=== PATIENT | male | born 1950 | race Caucasian/White ===

== ENCOUNTER 2018-07-31 14:15 | Emergency (ER) | payer MEDICARE, MEDICAID ==
[2018-07-31] MEDS ORDERED: Sodium Chloride 0.9% 1,000 ML IV STA (14:52)
--- NOTE | 2018-07-31 15:16 | ED PDOC ---
Arrival/HPI - General Chief Complaint: Seizure Time Seen by Provider: 07/31/18 14:25 Historian: Family (granddaughter) EM Caveat: Other (HPI is limited by patient's mutism) - History of Present Illness Narrative History of Present Illness (Text): 07/31/18 14:25 Nik Mcelroy is a 68 year old male, with a past medical history of seizures, bipolar disorder, schizophrenia, and depression, who presents to the emergency department by family who complain of seizure prior to arrival. Patient's granddaughter informs that family took him for a walk at his senior care when he suddenly lost consciousness while walking and fell to the floor hitting his head. Per granddaughter, patient convulsed on the floor with eyes open and was non-responsive. Granddaughter also notes patient vomited while convulsing on the floor. She denies any urination or bowel movements during episode. Granddaughter notes patient was groggy after seizure but began to respond to EMS. Patient currently takes Keppra. Granddaughter also notes secondary complaint of right forehead abrasion secondary to hitting head after loosing consciousness. Granddaughter informs that patient is currently at baseline. Further HPI and ROS are limited secondary to patient's mutism. Time/Duration: Prior to Arrival Symptom Course: Resolved Activities at Onset: Light Context: Walking Past Medical History - Provider Review Nursing Documentation Reviewed: Yes - Infectious Disease Hx of Infectious Diseases: None - Cardiac Hx Cardiac Disorders: No - Psychiatric Hx Bipolar Disorder: Yes Hx Schizophrenia: Yes Hx Substance Use: No - Anesthesia Hx Anesthesia: No Family/Social History - Physician Review Nursing Documentation Reviewed: Yes Family/Social History: No Known Family HX Smoking Status: Unknown If Ever Smoked Hx Alcohol Use: No Hx Substance Use: No Allergies/Home Meds Allergies/Adverse Reactions: Allergies No Known Allergies Allergy (Verified 07/31/18 14:25) Home Medications: Home Meds Medication Instructions Recorded Confirmed Unobtainable 07/31/18 07/31/18 Review of Systems - Review of Systems Systems not reviewed;Unavailable: Other (ROS unavailable secondary to patients's mutism) Physical Exam - Physical Exam Narrative Physical Exam (Text): 07/31/18 14:25 Constitutional: No acute distress. Head: Abrasion on right side of forehead. Normocephalic. Eyes: PERRL. ENT: Moist mucous membranes. Neck: No midline tenderness. Supple. Cardiovascular: Regular rate. Chest: No tenderness. Respiratory: Clear to auscultation bilaterally. GI: Soft. Nontender. Nondistended. Back: No CVA tenderness. Musculoskeletal: Full ROM x 4. No tenderness or swelling of extremities. Skin: Abrasion on right side of forehead. No rash. Neurologic: Awake, Alert. Follows commands. no focal deficit. Vital Signs Reviewed: Yes Temperature: Afebrile Blood Pressure: Normal Pulse: Regular Respiratory Rate: Normal Appearance: Positive for: Well-Appearing, Non-Toxic, Comfortable Pain Distress: None Mental Status: Positive for: other (Alert) Medical Decision Making ED Course and Treatment: 07/31/18 14:25 Impression: Patient is a 68 year old male brought by family to the emergency department who complain of seizure prior to arrival. Patient's granddaughter informs patient lost consciousness while walking and fell onto the floor hitting his head. Awake and alert, follows commands on exam. Plan: -- CT Head w/o Contrast -- Labs -- Chest X-Ray -- IV Fluids -- Urine Culture -- Urinalysis -- Reassess and disposition Prior Visits: Notes and results from previous visits were reviewed. Progress Notes: 07/31/18 15:32 CT Head without contrast shows: IMPRESSION: No acute intracranial abnormality. Mild chronic microangiopathic changes and mild age-related global parenchymal volume loss. Suspect acute and/or chronic left posterior ethmoid and sphenoid sinusitis. 07/31/18 15:42 Chest X-Ray shows: IMPRESSION: No active pulmonary disease. 07/31/18 17:[address] Capone, states patient has history of seizure, reviewed labs and CT together, recommends discharge back to [facility] and will see patient there. - RAD Interpretation Radiology Orders: 07/31/18 14:51 HEAD W/O CONTRAST [CT] Stat - Scribe Statement The provider has reviewed the documentation as recorded by the Scribe Modesto Perez All medical record entries made by the Scribe were at my direction and p ersonally dictated by me. I have reviewed the chart and agree that the record accurately reflects my personal performance of the history, physical exam, medical decision making, and the department course for this patient. I have also personally directed, reviewed, and agree with the discharge instructions and disposition. Disposition/Present on Arrival - Present on Arrival Any Indicators Present on Arrival: No History of DVT/PE: No History of Uncontrolled Diabetes: No Urinary Catheter: No History of Decub. Ulcer: No History Surgical Site Infection Following: None - Disposition Have Diagnosis and Disposition been Completed?: Yes Diagnosis: Seizure Disposition: HOME/ ROUTINE Disposition Time: 17:54 Patient Plan: Discharge Condition: FAIR Discharge Instructions (ExitCare): Seizures Referrals: Paula Capone MD [Family Provider] - Follow up with primary Forms: [employer] (Kiswahili)
[2018-07-31 15:21] LABS: BASO # 0.06 K/mm3 (0.0-2.0); BASO % 0.5 % (0.0-3.0); EOS # 0.3 (0.0-0.7); EOS % 2.4 % (1.5-5.0); HEMOGLOBIN 13.5 g/dL (14.0-18.0); LYMPH # 4.3 (1.2-3.4); LYMPH % 33.4 % (22.0-35.0); MEAN CORPUSCULAR HEMOGLOBIN 28.4 pg (25.0-35.0); MEAN CORPUSCULAR HGB CONC 30.9 g/dl (31.0-37.0); MEAN PLATELET VOLUME 11.1 fl (7.0-11.0); MONO # 1.1 (0.1-0.6); MONO % 8.5 % (1.0-6.0); PARTIAL THROMBOPLASTIN TIME 27.5 Seconds (26.9-38.3); RBC 4.75 10^6/uL (3.5-6.1); RED CELL DISTRIBUTION WIDTH 14.4 % (11.5-14.5)
--- NOTE | 2018-07-31 15:36 | CT ---
Date of service: 07/31/2018 PROCEDURE: CT HEAD WITHOUT CONTRAST. HISTORY: head injury COMPARISON: None available. TECHNIQUE: Axial computed tomography images were obtained through the head/brain without intravenous contrast. Radiation dose: Total exam DLP = 898.67 mGy-cm. This CT exam was performed using one or more of the following dose reduction techniques: Automated exposure control, adjustment of the mA and/or kV according to patient size, and/or use of iterative reconstruction technique. FINDINGS: HEMORRHAGE: No intracranial hemorrhage. BRAIN: There are mild chronic microangiopathic changes. There is no mass, mass effect or abnormal extra-axial fluid collection. There is no territorial infarction. The midline sagittal structures are normal. VENTRICLES: There is mild age-related global parenchymal volume loss and proportionate enlargement of the ventricles and cortical sulci. CALVARIUM: There is no calvarial fracture or extracranial soft tissue swelling. PARANASAL SINUSES: There is mild mucosal thickening and aerosolized secretions in the left posterior ethmoid air cells and left sphenoid chamber. The remaining included paranasal sinuses are clear. MASTOID AIR CELLS: Predominantly clear. OTHER FINDINGS: None. IMPRESSION: No acute intracranial abnormality. Mild chronic microangiopathic changes and mild age-related global parenchymal volume loss. Suspect acute and/or chronic left posterior ethmoid and sphenoid sinusitis.
[2018-07-31 15:43] LABS: ALB/GLOB RATIO 1.1 (1.1-1.8); ALBUMIN 4.2 g/dL (3.0-4.8); ALT/SGPT 20 U/L (7-56); AST/SGOT 32 U/L (17-59); BLOOD UREA NITROGEN 15 mg/dL (7-21); CALCIUM 10.3 mg/dL (8.4-10.5); GFR NON-AFRICAN AMERICAN > 60
--- NOTE | 2018-07-31 15:46 | RAD ---
Date of service: 07/31/2018 HISTORY: seizure COMPARISON: No prior. FINDINGS: LUNGS: The lungs are well inflated. There is bibasilar atelectasis. PLEURA: No pleural effusions or pneumothorax. CARDIOVASCULAR: The heart is normal in size. No aortic atherosclerotic calcifications present. OSSEOUS STRUCTURES: Within normal limits for the patient's age. VISUALIZED UPPER ABDOMEN: Normal. OTHER FINDINGS: None. IMPRESSION: No active pulmonary disease.
[2018-07-31 16:05] LABS: INR 1.06; PROTHROMBIN TIME 11.8 SECONDS (9.4-12.5)
[2018-07-31 17:28] LABS: PH,URINE 5.5 (4.7-8.0); URINE BILIRUBIN NEGATIVE (NEGATIVE); URINE BLOOD NEGATIVE (NEGATIVE); URINE GLUCOSE (UA) NEGATIVE (NEGATIVE); URINE LEUKOCYTE ESTERASE NEGATIVE Leu/uL (NEGATIVE); URINE PROTEIN 100 mg/dL (<30 mg/dL); URINE UROBILINOGEN 0.2 E.U./dL (<1 E.U./dL)
[2018-07-31 17:32] LABS: URINE APPEARANCE CLEAR (CLEAR); URINE COLOR YELLOW (YELLOW)
[2018-07-31] MEDS ORDERED: Bacitracin 500 Units/gm Oint Foilpak UD ONE (18:08)
[2018-07-31 18:10] VITALS: BP 110/71; PULSE 100; RESP 19; TEMP 98.1; O2SAT 97
[2018-07-31 18:15] LABS: URINE BACTERIA SMALL /hpf; URINE EPITHELIAL CELLS 0 - 2 /hpf (0-5); URINE HYALINE CAST 0 - 2 /hpf; URINE RBC 0 - 2 /hpf (0-2)
--- NOTE | 2018-08-01 09:33 | CARD ---
APPROVED REPORT Date of service: 07/31/2018 EKG Measurement Heart [id number] <Conclusion> Sinus tachycardia Left axis deviation Right bundle branch block Possible Lateral infarct, age undetermined Inferior infarct, age undetermined Abnormal ECG
== END 2018-07-31 18:13 | disposition home or self-care (01) ==
LOC: EDBD → ED 14:15 → MERGE 14:15 → ED 18:13
DX: R56.9 Unspecified convulsions (principal); F20.9 Schizophrenia, unspecified; F31.9 Bipolar disorder, unspecified
CPT/HCPCS: 70450; 71045; 80053; 81001; 83735; 84100; 85025; 85610; 85730; 87086; 93005; 96360; 99284; J7030